=== PATIENT | male | born 1985 | race African-American/Black ===

== ENCOUNTER 2021-02-20 07:46 | Outpatient (CLI) | payer BC | END 2021-02-20 07:47 | disposition home or self-care (01) | LOC: PET 07:46 | PROVIDERS: ATTEND Internal Medicine Hematology & Oncology | DX: R91.8 Other nonspecific abnormal finding of lung field (principal); R59.0 Localized enlarged lymph nodes | CPT/HCPCS: 78815; A9552 ==